=== PATIENT | male | born 1940 | race Caucasian/White ===

== ENCOUNTER → 2021-02-20 | Outpatient (CLI) | payer MEDICARE | LOC: KOH-I 09:32 | DX: M79.672 Pain in left foot (principal) | CPT/HCPCS: 73650 ==

== ENCOUNTER 2021-09-22 10:39 | Emergency (ER) | payer MEDICARE | END 2021-09-22 12:53 | disposition home or self-care (01) | LOC: ER1 10:39 | DX: S46.811A Strain of other muscles, fascia and tendons at shoulder and upper arm level, right arm, initial encounter (principal); S43.401A Unspecified sprain of right shoulder joint, initial encounter; I48.91 Unspecified atrial fibrillation; E78.5 Hyperlipidemia, unspecified; Z87.891 Personal history of nicotine dependence; X58.XXXA Exposure to other specified factors, initial encounter | CPT/HCPCS: 73030; 73060; 99283 ==

== ENCOUNTER 2021-11-06 00:11 | Emergency (ER) | payer MEDICARE | END 2021-11-06 02:37 | disposition left against medical advice (07) | LOC: ER1 00:11 | DX: Z53.21 Procedure and treatment not carried out due to patient leaving prior to being seen by health care provider (principal) ==